=== PATIENT | male | born 1995 | race Caucasian/White ===

== ENCOUNTER 2016-11-29 11:27 | Emergency (ER) | payer BC, OTHER ==
[~2016-11-29] VITALS: Ht 185.4 cm; Wt 83.2 kg
[2016-11-29 11:29] VITALS: TEMP 36.7; Ht 185.4 cm; Wt 83.2 kg
[2016-11-29] MEDS ORDERED: LORAZEPAM 0.5 MG TAB SL STA (11:52)
--- NOTE | 2016-11-29 12:11 | EMERGENCY ROOM VISIT NOTE ---
History Report prepared by Mitzi: Jessica Bowman Under the Supervision of: Dr. Cristhian Mcclain D.O. First contact with patient: 11:35 Chief Complaint: MENTAL HEALTH EVALUATION Stated Complaint: MENTAL HEALTH EVALUATION History of Present Illness The patient is a 21 year old male who presents to the Emergency Room for a mental health evaluation after making suicidal statements just COUNSELOR SUPERVISOR. The patient states that that he was drinking last night and when he woke up this morning he was woken up by a rehab counselor. He reports that his aunts, uncles, family friends, and father were in his house hosting an intervention. He notes that he was extremely overwhelmed and wanted everyone to leave him alone so he went outside for 30 minutes to clear his mind and when he returned they were continually overwhelming him. The patient states that his family is concerned with his drinking and his strained relationship with his father. He notes that he and his father do not have a good relationship and his father makes statements to him that antagonize him. He reports that his statements are intentionally upsetting and he does not agree with his style of parenting. The patient states that he made very impulsive statements today in an attempt to get everyone out of his house. He reports that he asked them if they wanted him to become suicidal or violent. The police state that they got a call today that there was a man in a garage with a knife threatening to kill others and himself. They note that there was broken windows and furniture and the patient decided to come in voluntarily. The patient states that he drinks to help his anxiety because he does not have any Xanax that he used to be prescribed. He notes that he was seen here inpatient 1 year ago. He denies any current suicidal or homicidal ideation, IV drug use, and reports that he uses recreational Xanax intermittently. The patient notes that he has a history of a stress fracture in his back and spondylosis. Source of History: patient Onset: just COUNSELOR SUPERVISOR Position: other (mental health) Quality: other (suicidal statements) Timing: constant Modifying Factors (Worsening): other (intervention) Note: The patient complains of anxiety. He denies any suicidal or homicidal ideation. Review of Systems See HPI for pertinent positives & negatives. A total of 10 systems reviewed and were otherwise negative. Past Medical & Surgical Medical Problems: (1) Back pain Family History No pertinent family history stated. Social History Smoking Status: Current Every Day Smoker Alcohol Use: heavy Drug Use: marijuana Marital Status: single Housing Status: lives with family Occupation Status: student Current/Historical Medications No Active Prescriptions or Reported Meds Allergies Coded Allergies: Sulfa Antibiotics (Unverified Allergy, Unknown, unknown, 11/29/16) Physical Exam Vital Signs Date Time Temp Pulse Resp B/P (MAP) Pulse Ox O2 Delivery O2 Flow Rate FiO2 11/29/16 15:14 98 16 129/67 97 Room Air 11/29/16 11:29 36.7 82 18 138/59 97 Room Air Physical Exam GENERAL: Patient is mildly guarded appearing and anxious EYES: The conjunctivae are clear. The pupils are round and reactive. EARS, NOSE, MOUTH AND THROAT: The nose is without any evidence of any deformity. Mucous membranes are moist tongue is midline NECK: The neck is nontender and supple. RESPIRATORY: Normal respiratory effort is noted there is no evidence of wheezing rhonchi or rales CARDIOVASCULAR: Regular rate and rhythm noted there no murmurs rubs or gallops normal S1 normal S2 GASTROINTESTINAL: The abdomen is soft. Bowel sounds are present in all quadrants. Abdomen is nontender MUSCULOSKELETAL/EXTREMITIES: There is no evidence of gross deformity full range of motion is noted in the hips and shoulders SKIN: There is no obvious evidence of any rash. There are no petechiae, pallor or cyanosis noted. NEUROLOGIC: Patient is awake alert and oriented x3 strength is symmetric patellar reflexes are 2+ bilaterally PSYCH: Guarded appearing, patient makes poor eye contact at times, currently denying any suicidal or homicidal ideation. Medical Decision & Procedures Laboratory Results 11/29/16 12:09 Red Blood Count 4.51, Mean Corpuscular Volume 91.1, Mean Corpuscular Hemoglobin 31.5, Mean Corpuscular Hemoglobin Concent 34.5, Mean Platelet Volume 9.3, Neutrophils (%) (Auto) 66.2, Lymphocytes (%) (Auto) 22.7, Monocytes (%) (Auto) 9.0, Eosinophils (%) (Auto) 1.6, Basophils (%) (Auto) 0.1, Neutrophils # (Auto) 4.82, Lymphocytes # (Auto) 1.66, Monocytes # (Auto) 0.66, Eosinophils # (Auto) 0.12, Basophils # (Auto) 0.01 11/29/16 12:09 Test 11/29/16 12:09 11/29/16 13:03 White Blood Count 7.30 K/uL (4.8-10.8) Red Blood Count 4.51 M/uL (4.7-6.1) Hemoglobin 14.2 g/dL (14.0-18.0) Hematocrit 41.1 % (42-52) Mean Corpuscular Volume 91.1 fL (80-100) Mean Corpuscular Hemoglobin 31.5 pg (25-34) Mean Corpuscular Hemoglobin Concent 34.5 g/dl (32-36) Platelet Count 262 K/uL (130-400) Mean Platelet Volume 9.3 fL (7.4-10.4) Neutrophils (%) (Auto) 66.2 % Lymphocytes (%) (Auto) 22.7 % Monocytes (%) (Auto) 9.0 % Eosinophils (%) (Auto) 1.6 % Basophils (%) (Auto) 0.1 % Neutrophils # (Auto) 4.82 K/uL (1.4-6.5) Lymphocytes # (Auto) 1.66 K/uL (1.2-3.4) Monocytes # (Auto) 0.66 K/uL (0.11-0.59) Eosinophils # (Auto) 0.12 K/uL (0-0.5) Basophils # (Auto) 0.01 K/uL (0-0.2) RDW Standard Deviation 45.7 fL (36.4-46.3) RDW Coefficient of Variation 13.7 % (11.5-14.5) Immature Granulocyte % (Auto) 0.4 % Immature Granulocyte # (Auto) 0.03 K/uL (0.00-0.02) Anion Gap 9.0 mmol/L (3-11) Est Creatinine Clear Calc Drug Dose 133.1 ml/min Estimated GFR () 125.0 Estimated GFR (Non- 107.9 BUN/Creatinine Ratio 10.1 (10-20) Calcium Level 8.6 mg/dl (8.5-10.1) Total Bilirubin 0.4 mg/dl (0.2-1) Direct Bilirubin < 0.1 mg/dl (0-0.2) Aspartate Amino Transf (AST/SGOT) 35 U/L (15-37) Alanine Aminotransferase (ALT/SGPT) 35 U/L (12-78) Alkaline Phosphatase 59 U/L (45-117) Total Protein 7.6 gm/dl (6.4-8.2) Albumin 4.1 gm/dl (3.4-5.0) Thyroid Stimulating Hormone (TSH) 0.445 uIu/ml (0.300-4.500) Ethyl Alcohol mg/dL 108.0 mg/dl (0-3) Urine Color YELLOW Urine Appearance CLEAR (CLEAR) Urine pH 5.0 (4.5-7.5) Urine Specific [place] 1.023 (1.000-1.030) Urine Protein NEG (NEG) Urine Glucose (UA) NEG (NEG) Urine Ketones NEG (NEG) Urine Occult Blood NEG (NEG) Urine Nitrite NEG (NEG) Urine Bilirubin NEG (NEG) Urine Urobilinogen NEG (NEG) Urine Leukocyte Esterase NEG (NEG) Urine Opiates Screen NEG (NEG) Urine Methadone, Qualitative NEG (NEG) Urine Barbiturates NEG (NEG) Urine Phencyclidine (PCP) Level NEG (NEG) Ur Amphetamine/Methamphetamine NEG (NEG) MDMA (Ecstasy) Screen NEG (NEG) Urine Benzodiazepines Screen POS (NEG) Urine Cocaine Metabolite NEG (NEG) Urine Marijuana (THC) POS (NEG) Laboratory results per my review. Medications Administered Medications (Trade) Dose Ordered Sig/Dotty Route Start Time Stop Time Status Last Admin Dose Admin Lorazepam (Ativan Tab) 0.5 mg NOW STAT SL 11/29/16 11:52 11/29/16 11:53 DC 11/29/16 12:14 0.5 MG Ibuprofen (Motrin Tab) 800 mg NOW STAT PO 11/29/16 15:24 11/29/16 15:25 DC 11/29/16 15:29 800 MG ED Course 1135: The patient was evaluated in room A7. A complete history and physical examination were performed. 1152: Ativan Tab 0.5mg SL. 1524: I reevaluated and updated the patient. He would like some Motrin for his back pain. 1524: Motrin Tab 800mg PO. 1722: The patient will be taken to a treatment center in [place]. 1800: The patient was signed out to Dr. Akins at change of shift. Medical Decision Differential diagnosis: Etiologies such as mood disorder, infection, hypoglycemia, electrolyte abnormalities, cardiac sources, intracerebral event, toxicologic, neurologic, as well as others were entertained. Medication Reconciliation: I attest that I have personally reviewed the patient' s current medications list. Patient was found to have a slightly elevated blood pressure due to circumstances. I do not believe that the patient requires hypertension monitoring. The patient is a 21-year-old male who has a history of alcohol abuse as well as mental health disorders who presented to the emergency department with police initially as a 302 petition. The patient had a petition statement filled out by family members. He arrived at the emergency Department he was very agreeable to evaluation and was medically cleared in the emergency department. The patient was treated with anti-anxiety medication but he also asked for pain medication for chronic back pain which I the the he has had in the past. I discussed the patient's laboratory results with him. He was evaluated by the emergency Department mental health delegate. The patient was reevaluated multiple times. At this time he does not have any active suicidal or homicidal ideation. He does not meet criteria for an involuntary mental health admission at this time and the patient's diagnoses are mostly those of alcohol addiction. His family members were able to get him into a rehabilitation center. The patient is to be held in the emergency department until he is picked up to go to rehabilitation. The patient was signed out to Dr. Akins at change of shift. Please see his note for continuation of care. Impression Primary Impression: Alcohol abuse Additional Impressions: Anxiety Aggressive behavior Scribe Attestation The scribe's documentation has been prepared under my direction and personally reviewed by me in its entirety. I confirm that the note above accurately reflects all work, treatment, procedures, and medical decision making performed by me. Departure Information Dispostion Still a Patient Prescriptions No Active Prescriptions or Reported Meds Referrals No Doctor, Assigned (PCP) Patient Instructions My [facility] Problem Qualifiers
[2016-11-29 12:24] LABS: BASO % 0.1 %; BASO ABS # 0.01 K/uL (0-0.2); COMPLETE YES; EOS % 1.6 %; HEMATOCRIT 41.1 % (42-52); IG% 0.4 %; LYMPH % 22.7 %; LYMPH ABS # 1.66 K/uL (1.2-3.4); MEAN CELL VOLUME 91.1 fL (80-100); MEAN CORPUSCULAR HEMOGLOBIN 31.5 pg (25-34); MEAN CORPUSCULAR HGB CONC 34.5 g/dl (32-36); MEAN PLATELET VOLUME 9.3 fL (7.4-10.4); NEUT % 66.2 %; PLATELET COUNT 262 K/uL (130-400); RED BLOOD COUNT 4.51 M/uL (4.7-6.1)
[2016-11-29 12:49] LABS: BLOOD UREA NITROGEN 10 mg/dl (7-18); GLUCOSE 81 mg/dl (70-99)
[2016-11-29 12:50] LABS: ALT/SGPT 35 U/L (12-78); BUN/CREATININE RATIO 10.1 (10-20); CALCIUM 8.6 mg/dl (8.5-10.1); CARBON DIOXIDE 23 mmol/L (21-32); CHLORIDE 108 mmol/L (98-107); POTASSIUM 3.8 mmol/L (3.5-5.1); SODIUM 140 mmol/L (136-145)
[2016-11-29 13:03] LABS: ALKALINE PHOSPHATASE 59 U/L (45-117); AST/SGOT 35 U/L (15-37); THYROID STIMULATING HORMONE 0.445 uIu/ml (0.300-4.500)
[2016-11-29 13:21] LABS: URINE APPEARANCE CLEAR (CLEAR); URINE BILIRUBIN NEG (NEG); URINE COLOR YELLOW; URINE NITRITE NEG (NEG); URINE SPECIFIC GRAVITY 1.023 (1.000-1.030); UROBILINOGEN NEG (NEG)
[2016-11-29 13:22] LABS: MANUAL MICROSCOPIC REQUIRED? NO; REVIEW REQ? NO
[2016-11-29 13:49] LABS: BENZODIAZEPINE, URINE POS (NEG); COCAINE,URINE NEG (NEG); PHENCYCLIDINE, URINE NEG (NEG)
[2016-11-29] MEDS ORDERED: IBUPROFEN 800 MG TAB PO STA (15:24)
[2016-11-29] MEDS ORDERED: IBUPROFEN 600 MG TAB PO STA (22:26)
[2016-11-29 22:31] VITALS: BP 137/65; PULSE 86; O2SAT 97
--- NOTE | 2016-11-30 00:45 | EMERGENCY ROOM VISIT NOTE ---
ED Visit Note First contact with patient: 00:43 This patient was signed out to me by Dr. Mcclain. The patient has been seen by the mental health nurse outreach case manager and by Dr. Mcclain. He was brought here because he made suicidal and homicidal statements during an intervention. Dr. Mcclain stated that the patient was not suicidal or homicidal and did not feel he was a danger to himself or others. He was signed out to me pending transfer to a rehabilitation facility in [place] which was arranged by his family. His grandfather was to pick him up at 4 AM. I did assess the patient briefly and he explained to me that he was never homicidal or suicidal. He was just upset and has a "toxic relationship" with his father. He states that he has a substance abuse issue and is planning to go to rehabilitation. The police arrived in the emergency department stating that they have a warrant for his arrest. They did arrest the patient and he was taken into police custody.
[2016-12-03 15:10] LABS: HYDROXYETHYLFLURAZEPAM CONF NEGATIVE NG/ML (CUTOFF=50); HYDROXYMIDAZOLAM NEGATIVE NG/ML (CUTOFF=50); HYDROXYTRIAZOLAM CONF NEGATIVE NG/ML (CUTOFF=50); TEMAZEPAM CONF NEGATIVE NG/ML (CUTOFF=50)
[2016-12-05 15:41] LABS: SYNTHETIC CANNABINOIDS QL URIN NEGATIVE (Negative)
== END 2016-11-30 00:59 | disposition home or self-care (01) ==
LOC: C.EDB 11:28 → C.EDA 11-30 00:59
DX: F10.20 Alcohol dependence, uncomplicated (principal); Y90.5 Blood alcohol level of 100-119 mg/100 ml; F41.9 Anxiety disorder, unspecified; F91.8 Other conduct disorders; F17.210 Nicotine dependence, cigarettes, uncomplicated; F12.10 Cannabis abuse, uncomplicated; M54.9 Dorsalgia, unspecified; G89.29 Other chronic pain